=== PATIENT | male | born 1985 | race Caucasian/White ===

== ENCOUNTER 2021-03-05 08:30 | Day surgery (SDC) | payer BC ==
[~2021-03-05 08:30] MED LIST: Lactated Ringers 1,000 ML IV SCH; Lidocaine 2% 5 ML SDV ONE; Midazolam 1 MG/ML 2 ML SDV ONE; Propofol 200 MG/20 ML SDV ONE; Sodium Chloride 0.9% 10 ML SDV IV PRN; Sodium Chloride 0.9% 10 ML Syringe FLUSH PRN; Sodium Chloride 0.9% 2.5 ML Syringe FLUSH PRN; fentaNYL 100 MCG/2 ML SDV ONE
--- NOTE | 2021-03-05 09:28 | PCM.PREANE ---
Preanesthetic Assessment - Anesthesia/Transfusion/Family Hx Anesthesia History: Prior Anesthesia Without Reaction Family History of Anesthesia Reaction: No Transfusion History: No Prior Transfusion(s) - Review of Systems General: No Symptoms Pulmonary: No Symptoms Cardiovascular: No Symptoms Gastrointestinal: No Symptoms Neurological: No Symptoms Other: Reports: None - Physical Assessment NPO Status Date: 03/05/21 NPO Status Time: 00:01 Vital Signs: Last Vital Signs Temp 97.2 F 03/05/21 08:44 Pulse 92 03/05/21 08:44 Resp 15 03/05/21 08:44 BP 149/95 H 03/05/21 08:44 Pulse Ox 99 03/05/21 08:44 Height: 5 ft 6 in Weight: 173 lb ASA Class: 2 Mental Status: Alert & Oriented x3 Airway Class: Mallampati = 2 Dentition: Reports: Normal Dentition ROM/Head Extension: Full Lungs: Clear to Auscultation, Normal Respiratory Effort Cardiovascular: Regular Rate, Regular Rhythm - Allergies Allergies/Adverse Reactions: Allergies Allergy/AdvReac Type Severity Reaction Status Date / Time bacitracin Allergy Rash Verified 02/28/21 10:38 neomycin Allergy Rash Verified 02/28/21 10:38 [From Neosporin ([id number])] polymyxin B Allergy Rash Verified 02/28/21 10:38 [From Neosporin ([id number])] - Acknowledgements Anesthesia Type Planned: General Anesthesia Pt an Appropriate Candidate for the Planned Anesthesia: Yes Alternatives and Risks of Anesthesia Discussed w Pt/Guardian: Yes Pt/Guardian Understands and Agrees with Anesthesia Plan: Yes Additional Comments: npo alexandre tob quit chew tob 2019 etoh rare covid pos jan 09, 2021 lost taste and smell resolved no pul problems par no questions PreAnesthesia Questionnaire HEENT History: Reports: None Cardiovascular History: Reports: None Respiratory History: Reports: None Gastrointestinal History: Reports: GERD, Hiatal Hernia Genitourinary History: Reports: None Musculoskeletal History: Reports: None Neurological History: Reports: Concussion Psychiatric History: Reports: None Endocrine/Metabolic History: Reports: None Hematologic History: Reports: None Immunologic History: Reports: None Oncologic (Cancer) History: Reports: None Dermatologic History: Reports: Eczema - Past Surgical History Head Surgeries/Procedures: Reports: None HEENT Surgical History: Reports: LASIK, Oral Surgery Cardiovascular Surgical History: Reports: None Respiratory Surgical History: Reports: None GI Surgical History: Reports: None Male Surgical History: Reports: None Endocrine Surgical History: Reports: None Neurological Surgical History: Reports: None Musculoskeletal Surgical History: Reports: None Oncologic Surgical History: Reports: None Dermatological Surgical History: Reports: None - SUBSTANCE USE Tobacco Use Within Last Twelve Months: No - HOME MEDS Home Medications: Home Meds Omeprazole 40 mg PO DAILY 02/28/21 [History] - CURRENT (IN HOUSE) MEDS Current Meds: Current Medications Lactated Ringer's (Ringers, Lactated) 1,000 mls @ 125 mls/hr IV ASDIRECTED WILFREDO Last Admin: 03/05/21 09:00 Dose: 125 mls/hr Documented by: Sodium Chloride (Sodium Chloride 0.9% 10 Ml Syringe) 10 ml FLUSH ASDIRECTED PRN PRN Reason: Keep Vein Open Sodium Chloride (Sodium Chloride 0.9% 2.5 Ml Syringe) 2.5 ml FLUSH ASDIRECTED PRN PRN Reason: Keep Vein Open Sodium Chloride (Sodium Chloride 0.9% 10 Ml Syringe) 10 ml FLUSH ASDIRECTED PRN PRN Reason: Keep Vein Open Sodium Chloride (Sodium Chloride 0.9% 2.5 Ml Syringe) 2.5 ml FLUSH ASDIRECTED PRN PRN Reason: Keep Vein Open Sodium Chloride (Sodium Chloride 0.9% 10 Ml Sdv) 10 ml IV ASDIRECTED PRN PRN Reason: IV Use Discontinued Medications Fentanyl (Fentanyl 100 Mcg/2 Ml Sdv) Confirm Administered Dose 100 mcg .ROUTE .STK-MED ONE Stop: 03/05/21 08:01 Lidocaine (Lidocaine 2% 5 Ml Sdv) Confirm Administered Dose 5 ml .ROUTE .STK-MED ONE Stop: 03/05/21 08:00 Midazolam HCl (Midazolam 1 Mg/Ml 2 Ml Sdv) Confirm Administered Dose 2 mg .ROUTE .STK-MED ONE Stop: 03/05/21 08:01 Propofol (Propofol 200 Mg/20 Ml Sdv) Confirm Administered Dose 200 mg .ROUTE .STK-MED ONE Stop: 03/05/21 08:01
[2021-03-05] MEDS ORDERED: Propofol 200 MG/20 ML SDV ONE (10:06)
--- NOTE | 2021-03-05 10:36 | PCM.OPNOTE ---
- General Post-Op/Procedure Note Date of Surgery/Procedure: 03/05/21 Operative Procedure(s): Diagnostic EGD and colonoscopy Findings: Normal appearing colon. Biopsies of cecum, transverse colon, sigmoid and rectum. Small hiatal hernia. Mild distal esophagitis. Pre Op Diagnosis: Nausea, vomiting, change in bowel habits Post-Op Diagnosis: Hiatal hernia with gerd and esophagitis, normal colonoscopy Anesthesia Technique: MAC Primary Surgeon: Kayla Galvan Condition: Good
--- NOTE | 2021-03-05 12:53 | PCM.POSTAN ---
POST ANESTHESIA ASSESSMENT - MENTAL STATUS Mental Status: Alert (no anesthetic problems), Oriented - VITAL SIGNS Vital Signs: Last Vital Signs Temp 96.8 F L 03/05/21 10:59 Pulse 68 03/05/21 10:59 Resp 14 03/05/21 10:59 BP 114/80 03/05/21 10:59 Pulse Ox 99 03/05/21 10:59 - RESPIRATORY Respiratory Status: Respiratory Rate WNL, Airway Patent, O2 Saturation Stable - CARDIOVASCULAR CV Status: Pulse Rate WNL, Blood Pressure Stable - GASTROINTESTINAL GI Status: No Symptoms - POST OP HYDRATION Hydration Status: Adequate & Stable
--- NOTE | 2021-03-05 12:53 | PCM48HPAN ---
Post Anesthesia Note - EVALUATION WITHIN 48HRS OF ANESTHETIC Vital Signs in Normal Range: Yes Patient Participated in Evaluation: Yes Respiratory Function Stable: Yes Airway Patent: Yes Cardiovascular Function Stable: Yes Hydration Status Stable: Yes Pain Control Satisfactory: Yes Nausea and Vomiting Control Satisfactory: Yes Mental Status Recovered: Yes Vital Signs: Last Vital Signs Temp 96.8 F L 03/05/21 10:59 Pulse 68 03/05/21 10:59 Resp 14 03/05/21 10:59 BP 114/80 03/05/21 10:59 Pulse Ox 99 03/05/21 10:59
--- NOTE | 2021-03-05 15:37 | OR ---
SURGEON: KAYLA GALVAN MD DATE OF PROCEDURE: 03/05/2021 PREOPERATIVE DIAGNOSIS: Nausea and vomiting, change in bowel habits. POSTOPERATIVE DIAGNOSES: 1. Hiatal hernia with esophagitis. 2. Change in bowel habits. PROCEDURES PERFORMED: Diagnostic esophagogastroduodenoscopy and colonoscopy with biopsies. PRIMARY SURGEON: Kayla Galvan MD ANESTHESIA: MAC. INSTRUMENTS USED: Olympus endoscope and colonoscope. EXTENT OF EXAM: To the second portion of duodenum, to the cecum. PREPARATION: Good. LIMITATIONS: None. INDICATIONS FOR EXAMINATION: The patient is a 35-year-old male who presents with nausea, vomiting, as well as a change in his bowel habits. He had a HIDA scan performed which showed questionable biliary dyskinesia. The decision was made to proceed with an EGD and colonoscopy prior to discussing a cholecystectomy. We discussed the procedures, expected perioperative course, and the risks. He verbalized understanding and wishes to proceed. PROCEDURE IN DETAIL: The patient was brought in to the endoscopy suite and placed in the left lateral decubitus position. A time-out was completed verifying the patient's name, age, date of , allergies, and procedure to be performed. A bite block was placed in the patient's mouth and continuous oxygen was provided via nasal cannula throughout the procedure. Monitored anesthesia care was induced. After adequate sedation was achieved, a well-lubricated endoscope was placed in the patient's mouth and advanced under direct visualization to the second portion of duodenum. This appeared normal and a photograph was taken. The scope was then fully withdrawn while examining the color, texture, anatomy, and integrity mucosa of the upper GI tract. The duodenal bulb appeared normal. Biopsies were taken of this and sent to Pathology, labeled as duodenum. The scope was brought into the stomach and a photograph was taken of the pylorus and GE junction. The patient appeared to have a very small hiatal hernia. Biopsies were taken of the gastric antrum, body, and fundus and sent for histologic review and H pylori testing. There was no evidence of gross ulceration or inflammation of the gastric mucosa. The scope was brought into the distal esophagus and a photograph was taken of the Z-line. The Z-line appeared mildly irregular and there appeared to be some very mild distal esophagitis. A photograph was taken of the Z-line as well as the very small hiatal hernia. A biopsy was taken 1 cm above the Z-line and sent to Pathology, labeled as esophagus. The remainder of the esophagus appeared normal. The scope was removed and this portion of the procedure terminated. A digital rectal exam was performed. This exam was within normal limits. A well-lubricated colonoscope was inserted into the rectum and advanced under direct visualization to the level of the cecum. The cecum was identified by both visual and anatomic landmarks. A photograph was taken of the cecal cap as well as with the scope retroflexed within the cecum. The scope was then straightened out and fully withdrawn while examining the color, texture, anatomy, and integrity of mucosa from the cecum to the anal canal. The colonic mucosa all appeared normal. Random biopsies were taken of the cecum, transverse colon, sigmoid colon, and rectum and sent to Pathology for histologic review. The scope was retroflexed in the rectum to allow visualization of the anal canal opening. This appeared normal and a photograph was taken. The scope was straightened out and fully withdrawn. The cecum to anus time was 8 minutes. The patient tolerated the procedure well and was transferred to the PACU in stable condition. ENDOSCOPIC DIAGNOSES: 1. Hiatal hernia with esophagitis. 2. Change in bowel habits. RECOMMENDATIONS: Follow up in clinic in two weeks. MANDIE DELA CRUZ /[id number]
== END 2021-03-05 11:30 | disposition home or self-care (01) ==
LOC: MW.SDS 08:30
PROVIDERS: ATTEND Surgery
DX: R19.4 Change in bowel habit (principal); K44.9 Diaphragmatic hernia without obstruction or gangrene; Z86.16 Personal history of COVID-19; E78.5 Hyperlipidemia, unspecified; K21.00 Gastro-esophageal reflux disease with esophagitis, without bleeding; K82.8 Other specified diseases of gallbladder; Z88.1 Allergy status to other antibiotic agents; Z87.891 Personal history of nicotine dependence
CPT/HCPCS: 43239; 45380; J2250; J2704; J3010; J7120; 88305; 88312

== ENCOUNTER 2021-03-14 08:22 | Day surgery (SDC) | payer BC ==
[~2021-03-14 08:22] MED LIST changes: +Bupivacaine 0.5% 30 ML SDV ONE; +Glycopyrrolate 0.2 MG/ML SDV ONE; +Ketorolac 30 MG/ML SDV ONE; +Octyl 2-Cyanoacrylate 1 Tube ONE; +Ondansetron 4 MG/2 ML SDV ONE; +Rocuronium Bromide 50 MG/5 ML Syringe ONE; +Sodium Chloride 0.9% 20 ML ONE; +Sugammadex Sodium 200 MG/2 ML VIAL ONE; +ceFAZolin 1 GM Vial ONE; +ceFAZolin 2 GM in Premix Bag 1 BAG IV ONE; -fentaNYL 100 MCG/2 ML SDV ONE; +fentaNYL 250 MCG/5 ML SDV ONE
--- NOTE | 2021-03-14 09:09 | PCM.PREANE ---
Preanesthetic Assessment - Anesthesia/Transfusion/Family Hx Anesthesia History: Prior Anesthesia Without Reaction Family History of Anesthesia Reaction: No Transfusion History: No Prior Transfusion(s) - Review of Systems General: No Symptoms Pulmonary: No Symptoms Cardiovascular: No Symptoms Gastrointestinal: No Symptoms Neurological: No Symptoms Other: Reports: None - Physical Assessment NPO Status Date: 03/14/21 NPO Status Time: 00:01 Vital Signs: Last Vital Signs Temp 97.3 F 03/14/21 08:33 Pulse 67 03/14/21 08:33 Resp 15 03/14/21 08:33 BP 132/87 03/14/21 08:33 Pulse Ox 99 03/14/21 08:33 Height: 5 ft 6 in Weight: 173 lb ASA Class: 2 Mental Status: Alert & Oriented x3 Airway Class: Mallampati = 2 Dentition: Reports: Normal Dentition ROM/Head Extension: Full Lungs: Clear to Auscultation, Normal Respiratory Effort Cardiovascular: Regular Rate, Regular Rhythm - Allergies Allergies/Adverse Reactions: Allergies Allergy/AdvReac Type Severity Reaction Status Date / Time bacitracin Allergy Rash Verified 03/08/21 07:32 neomycin Allergy Rash Verified 03/08/21 07:32 [From Neosporin ([id number])] polymyxin B Allergy Rash Verified 03/08/21 07:32 [From Neosporin ([id number])] - Anesthesia Plan Pre-Op Medication Ordered: None - Acknowledgements Anesthesia Type Planned: General Anesthesia Pt an Appropriate Candidate for the Planned Anesthesia: Yes Alternatives and Risks of Anesthesia Discussed w Pt/Guardian: Yes Pt/Guardian Understands and Agrees with Anesthesia Plan: Yes Additional Comments: npo after [place] tob none etoh rare no cv problems par no questions PreAnesthesia Questionnaire HEENT History: Reports: None Cardiovascular History: Reports: None Respiratory History: Reports: None Gastrointestinal History: Reports: GERD, Hiatal Hernia Genitourinary History: Reports: None Musculoskeletal History: Reports: None Neurological History: Reports: Concussion Psychiatric History: Reports: None Endocrine/Metabolic History: Reports: None Hematologic History: Reports: None Immunologic History: Reports: None Oncologic (Cancer) History: Reports: None Dermatologic History: Reports: Eczema - Past Surgical History Head Surgeries/Procedures: Reports: None HEENT Surgical History: Reports: LASIK, Oral Surgery Cardiovascular Surgical History: Reports: None Respiratory Surgical History: Reports: None GI Surgical History: Reports: Colonoscopy, EGD Male Surgical History: Reports: None Endocrine Surgical History: Reports: None Neurological Surgical History: Reports: None Musculoskeletal Surgical History: Reports: None Oncologic Surgical History: Reports: None - SUBSTANCE USE Tobacco Use Within Last Twelve Months: Other (See Below) - HOME MEDS Home Medications: Home Meds Omeprazole 40 mg PO DAILY 02/28/21 [History] - CURRENT (IN HOUSE) MEDS Current Meds: Current Medications Lactated Ringer's (Ringers, Lactated) 1,000 mls @ 125 mls/hr IV ASDIRECTED WILFREDO Sodium Chloride (Sodium Chloride 0.9% 2.5 Ml Syringe) 2.5 ml FLUSH ASDIRECTED PRN PRN Reason: Keep Vein Open Sodium Chloride (Sodium Chloride 0.9% 10 Ml Sdv) 10 ml IV ASDIRECTED PRN PRN Reason: IV Use Sodium Chloride (Sodium Chloride 0.9% 10 Ml Syringe) 10 ml FLUSH ASDIRECTED PRN PRN Reason: Keep Vein Open Discontinued Medications Bupivacaine HCl (Bupivacaine 0.5% 30 Ml Sdv) Confirm Administered Dose 30 ml .ROUTE .STK-MED ONE Stop: 03/14/21 08:01 Cefazolin Sodium (Cefazolin 1 Gm Vial) Confirm Administered Dose 2 gm .ROUTE .STK-MED ONE Stop: 03/14/21 07:17 Fentanyl (Fentanyl 250 Mcg/5 Ml Sdv) Confirm Administered Dose 250 mcg .ROUTE .STK-MED ONE Stop: 03/14/21 07:10 Glycopyrrolate (Glycopyrrolate 0.2 Mg/Ml Sdv) Confirm Administered Dose 0.2 mg .ROUTE .STK-MED ONE Stop: 03/14/21 07:10 Cefazolin Sodium/Dextrose 2 gm (/ Premix) 50 mls @ 100 mls/hr IV ONETIME ONE Stop: 03/11/21 11:28 Sodium Chloride (Normal Saline) Confirm Administered Dose 20 mls @ as directed .ROUTE .STK-MED ONE Stop: 03/14/21 07:17 Ketorolac Tromethamine (Ketorolac 30 Mg/Ml Sdv) Confirm Administered Dose 30 mg .ROUTE .STK-MED ONE Stop: 03/14/21 07:10 Lidocaine (Lidocaine 2% 5 Ml Sdv) Confirm Administered Dose 5 ml .ROUTE .STK-MED ONE Stop: 03/14/21 07:10 Midazolam HCl (Midazolam 1 Mg/Ml 2 Ml Sdv) [facility]: 03/14/21 07:09 Octyl Cyanoacrylate (Octyl 2-Cyanoacrylate 1 Tube) Confirm Administered Dose 1 applic [facility] Stop: 03/14/21 08:01 Ondansetron HCl (Ondansetron 4 Mg/2 Ml Sdv) Confirm Administered Dose 4 mg .ROUTE .[facility] ONE Stop: 03/14/21 07:10 Propofol (Propofol 200 Mg/20 Ml Sdv) Confirm Administered Dose 200 [facility] Stop: 03/14/21 07:09 Rocuronium Patterson (Rocuronium Patterson 50 Mg/5 Ml Syringe) Confirm Administered Dose 50 mg .ROUTE .[facility] ONE Stop: 03/14/21 07:10 Sugammadex Sodium (Sugammadex Sodium 200 Mg/2 Ml Vial) Confirm Administered Dose 200 mg .ROUTE .[facility] ONE Stop: 03/14/21 07:10
[2021-03-14] MEDS ORDERED: fentaNYL 100 MCG/2 ML SDV IVPUSH PRN (10:47)
[2021-03-14] MEDS ORDERED: Acetaminophen 1,000 MG in Premix Bag 1 BAG IV PRN (10:47)
[2021-03-14] MEDS ORDERED: Acetaminophen/oxyCODONE 325-5 MG Tab PO PRN (11:22)
--- NOTE | 2021-03-14 11:23 | PCM.OPNOTE ---
- General Post-Op/Procedure Note Date of Surgery/Procedure: 03/14/21 Operative Procedure(s): Laparoscopic cholecystectomy Findings: Normal appearing gallbladder Pre Op Diagnosis: Biliary dyskinesia Post-Op Diagnosis: same Anesthesia Technique: MAC Primary Surgeon: Kayla Galvan Condition: Good
--- NOTE | 2021-03-14 12:28 | PCM.POSTAN ---
POST ANESTHESIA ASSESSMENT - MENTAL STATUS Mental Status: Alert (no anesthetic problems), Oriented - VITAL SIGNS Vital Signs: Last Vital Signs Temp 97.5 F 03/14/21 11:32 Pulse 62 03/14/21 12:18 Resp 14 03/14/21 12:18 BP 113/76 03/14/21 12:18 Pulse Ox 95 03/14/21 12:18 - RESPIRATORY Respiratory Status: Respiratory Rate WNL, Airway Patent, O2 Saturation Stable - CARDIOVASCULAR CV Status: Pulse Rate WNL, Blood Pressure Stable - GASTROINTESTINAL GI Status: No Symptoms - POST OP HYDRATION Hydration Status: Adequate & Stable
--- NOTE | 2021-03-14 14:22 | PCM48HPAN ---
Post Anesthesia Note - EVALUATION WITHIN 48HRS OF ANESTHETIC Vital Signs in Normal Range: Yes Patient Participated in Evaluation: Yes Respiratory Function Stable: Yes Airway Patent: Yes Cardiovascular Function Stable: Yes Hydration Status Stable: Yes Pain Control Satisfactory: Yes Nausea and Vomiting Control Satisfactory: Yes Mental Status Recovered: Yes Vital Signs: Last Vital Signs Temp 97.2 F 03/14/21 12:25 Pulse 62 03/14/21 14:10 Resp 15 03/14/21 14:10 BP 119/73 03/14/21 14:10 Pulse Ox 99 03/14/21 13:40
--- NOTE | 2021-03-15 16:58 | OR ---
SURGEON: KAYLA FLORES MD DATE OF PROCEDURE: 03/14/2021 PREOPERATIVE DIAGNOSIS: Biliary dyskinesia. POSTOPERATIVE DIAGNOSIS: Biliary dyskinesia. PROCEDURE PERFORMED: Laparoscopic cholecystectomy. PRIMARY SURGEON: Kayla Flores MD ANESTHESIA: General endotracheal anesthesia. FLUIDS: 900 mL crystalloid. ESTIMATED BLOOD LOSS: 5 mL. URINE OUTPUT: 350 mL. FINDINGS: Normal-appearing gallbladder. COMPLICATIONS: None. INDICATIONS: The patient is a 35-year-old male who presented to my clinic with complaints of right upper quadrant postprandial abdominal pain. I performed a diagnostic EGD and colonoscopy. He was found to have a small hiatal hernia with some mild reflux esophagitis. Despite being on a PPI, symptoms have not resolved. He had a HIDA scan which showed an ejection fraction on the low end of normal at 42%. After discussion regarding these findings, the patient and I both agreed that his symptoms are likely due to biliary dyskinesia and that he wishes to undergo a laparoscopic possible open cholecystectomy. I explained the procedure, expected perioperative course, and the risks. The patient verbalized understanding and wishes to proceed. PROCEDURE IN DETAIL: The patient was brought into the OR and placed on the OR table in supine position. A time-out was completed verifying the patient's name, age, date of , allergies, and procedure to be performed. General endotracheal anesthesia was induced. The left arm was tucked to the patient's side and a Narayanan catheter placed. The abdomen was prepped and draped in usual standard fashion. I anesthetized the infraumbilical fold with 0.5% Marcaine plain. An 11 blade was used to make an incision along the infraumbilical fold. Cautery was used to dissect to the level of the subcutaneous fat. I bluntly dissected down to the fascia. The fascia was elevated with Kochers and incised sharply with a curved Pina scissors. The peritoneum was identified. This was elevated with hemostats and incised sharply with a curved Pina scissors as well. Entry into the abdomen was palpated digitally. A 12- mm Rosalba trocar was placed into the abdomen and it was insufflated with carbon dioxide. A 5 mm, 30-degree scope was inserted. I inspected the area underneath my initial trocar placement. No damage to surrounding structures was noted. The patient was placed into reverse Trendelenburg position and airplaned slightly to the left. 5 mm trocars were placed under direct visualization in the following locations, one in the epigastric area, one in the right flank, and one 2 fingerbreadths below the left subcostal margin in the midclavicular line. The dome of the gallbladder was grasped and elevated. I identified the infundibulum. This was grasped. Using a combination of blunt dissection and hook cautery, I took down the attachments around the proximal one-third of the gallbladder. I cleared away all of the attachments around the cystic duct and artery. I then cleared away one-third of the proximal cystic plate. Once my critical view was achieved, I doubly clipped and ligated my cystic duct and artery. The remainder of the attachments of the gallbladder to the cystic plate were taken down using hook cautery. The gallbladder was then placed in an Endo Catch bag and removed through the infraumbilical port site. I closely inspected my operative field. It appeared to be hemostatic with no evidence of biliary drainage. A photograph was taken. I irrigated the right upper quadrant with a small amount of normal saline which was suctioned out. I then removed the 5 mm trocars under direct visualization and allowed the abdomen to desufflate. The 12 mm Rosalba trocar was removed as well. The fascia at the infraumbilical port site was closed with interrupted 0 Vicryl sutures. The subcutaneous fat was closed with interrupted 3-0 Vicryl sutures. The skin was closed with a running 4-0 Monocryl stitch. The 5 mm trocar sites were closed with interrupted 4-0 Monocryl sutures. Dermabond and sterile dressings were applied. All counts were complete and correct at the end of the case. The patient was extubated and taken to the PACU in stable condition. MANDIE DELA CRUZ /[id number]
== END 2021-03-14 14:40 | disposition home or self-care (01) ==
LOC: MW.SDS 08:22
PROVIDERS: ATTEND Surgery
DX: K81.1 Chronic cholecystitis (principal); K82.8 Other specified diseases of gallbladder; K21.9 Gastro-esophageal reflux disease without esophagitis; E78.5 Hyperlipidemia, unspecified; K44.9 Diaphragmatic hernia without obstruction or gangrene; Z86.16 Personal history of COVID-19; Z88.1 Allergy status to other antibiotic agents; Z79.899 Other long term (current) drug therapy; Z87.891 Personal history of nicotine dependence
CPT/HCPCS: 47562; 88304; A9270; J0131; J0690; J1885; J2250; J2405; J2704; J3010; J3490; J7120; 00790

== ENCOUNTER 2022-08-13 19:09 | Emergency (ER) | payer BC ==
[2022-08-13] MEDS ORDERED: Sodium Chloride 0.9% 2.5 ML Syringe FLUSH PRN (19:42)
[2022-08-13] MEDS ORDERED: Sodium Chloride 0.9% 1,000 ML IV ONE (19:42)
[2022-08-13] MEDS ORDERED: Sodium Chloride 0.9% 10 ML Syringe FLUSH PRN (19:42)
[2022-08-13 20:18] LABS: BLOOD UREA NITROGEN,BUN 17 mg/dL (7.0-18.0); CARBON DIOXIDE,CO2 29.5 mmol/L (21.0-32.0); CHLORIDE,CL 102 mmol/L (98-107); ESTIMATED GFR 100 mL/min (>60); GLUCOSE RANDOM 83 mg/dL (74-106); POTASSIUM,K 4.3 mmol/L (3.5-5.1); SODIUM,NA 141 mmol/L (136-148)
== END 2022-08-13 23:43 | disposition home or self-care (01) ==
LOC: MW.ED 19:09
DX: R00.2 Palpitations (principal); R00.0 Tachycardia, unspecified; K21.9 Gastro-esophageal reflux disease without esophagitis; Z88.8 Allergy status to other drugs, medicaments and biological substances
CPT/HCPCS: 36415; 71045; 80053; 80305; 81003; 83880; 84443; 84484; 85025; 85379; 93005; 96360; 99285; J3490; J7030; 93010; 99284

== ENCOUNTER 2022-10-22 06:12 | Emergency (ER) | payer BC ==
[2022-10-22] MEDS ORDERED: Octyl 2-Cyanoacrylate 1 g/1 mL 1 APPLIC PEN TOP ONE (06:22)
[2022-10-22] MEDS ORDERED: Morphine 4 MG/ML Syringe IVPUSH STA (06:33)
[2022-10-22] MEDS ORDERED: Ondansetron 4 MG/2 ML SDV ONE (06:51)
[2022-10-22] MEDS ORDERED: Ondansetron 4 MG/2 ML SDV IVPUSH ONE (06:52)
[2022-10-22 07:07] LABS: CARBON DIOXIDE,CO2 26.2 mmol/L (21.0-32.0); POTASSIUM,K 4.2 mmol/L (3.5-5.1)
[2022-10-22] MEDS ORDERED: Iopamidol 755 MG/ML 200 ML Multipack Bottle IVPUSH ONE (07:28)
[2022-10-22] MEDS ORDERED: Iopamidol 755 MG/ML 500 ML Multipack Bottle IVPUSH STA (07:33)
== END 2022-10-22 08:33 | disposition home or self-care (01) ==
LOC: MW.ED 06:12
DX: R10.32 Left lower quadrant pain (principal); R19.7 Diarrhea, unspecified; K21.9 Gastro-esophageal reflux disease without esophagitis; Z88.1 Allergy status to other antibiotic agents; Z88.8 Allergy status to other drugs, medicaments and biological substances; Z86.16 Personal history of COVID-19; Z79.899 Other long term (current) drug therapy
CPT/HCPCS: 36415; 74177; 80053; 83690; 85025; 96374; 96375; 99284; J2270; J2405; Q9967

== ENCOUNTER 2022-11-30 03:40 | Emergency (ER) | payer BC | END 2022-11-30 04:58 | disposition home or self-care (01) | LOC: MW.ED 03:40 | DX: R61 Generalized hyperhidrosis (principal); Z88.1 Allergy status to other antibiotic agents; Z98.890 Other specified postprocedural states | CPT/HCPCS: 99283 ==

== ENCOUNTER 2023-04-13 00:45 | Emergency (ER) | payer BC ==
[2023-04-13] MEDS ORDERED: Lactated Ringers 1,000 ML IV ONE (01:08)
[2023-04-13 01:11] LABS: BASE EXCESS VENOUS -4.2 (-2.0-3.0); BASOPHILS PERCENT AUTO 0.3 % (0.0-1.5); EOSINOPHILS ABSOLUTE AUTO 0.3 K/uL (0.0-0.7); EOSINOPHILS PERCENT AUTO 2.7 % (0.0-7.0); HEMATOCRIT 46.8 % (38.0-50.0); HEMOGLOBIN 16.3 g/dL (13.0-17.0); LYMPHOCYTES ABSOLUTE AUTO 3.9 K/uL (0.6-2.4); LYMPHOCYTES PERCENT AUTO 37.3 % (16.0-40.0); MEAN CORPUSCULAR HEMOGLOBIN 31.5 pg (27.0-32.0); MEAN CORPUSCULAR HGB CONC 34.8 g/dL (31.0-37.0); MEAN CORPUSCULAR VOLUME 90.5 fL (80.0-98.0); MONOCYTES ABSOLUTE AUTO 0.8 K/uL (0.0-0.8); NEUTROPHILS ABSOLUTE AUTO 5.5 K/uL (1.4-5.7); NEUTROPHILS PERCENT AUTO 51.7 % (48.0-80.0); NRBC ABSOLUTE 0 K/uL; PH,VENOUS 7.33 (7.31-7.41); PLATELET COUNT,PLT 322 K/uL (150-400); RED BLOOD CELL COUNT 5.17 M/uL (4.50-5.90); WHITE BLOOD CELL COUNT,WBC 10.53 K/uL (4.0-11.0)
[2023-04-13 01:22] LABS: ALBUMIN 3.7 g/dL (3.4-5.0); BILIRUBIN TOTAL 0.4 mg/dL (0.2-1.0); CALCIUM 8.3 mg/dL (8.5-10.1); CARBON DIOXIDE,CO2 21.6 mmol/L (21.0-32.0); CREATININE 1.2 mg/dL (0.8-1.3); EST CRCL DRUG DOSING (CG) 81.54 mL/min; MAGNESIUM 2.2 mg/dL (1.8-2.4); POTASSIUM,K 3.9 mmol/L (3.5-5.1); PROTEIN TOTAL,TP 7.5 g/dL (6.4-8.2)
[2023-04-13 01:25] LABS: LACTIC ACID 6.7 mmol/L (0.4-2.0)
[2023-04-13] MEDS ORDERED: Ibuprofen 400 MG Tab PO ONE (01:59)
[2023-04-13] MEDS ORDERED: Acetaminophen 325 MG Tab PO ONE (01:59)
== END 2023-04-13 04:20 | disposition home or self-care (01) ==
LOC: MW.ED 00:45
DX: R56.9 Unspecified convulsions (principal); Z88.1 Allergy status to other antibiotic agents; Z86.16 Personal history of COVID-19
CPT/HCPCS: 36415; 70450; 72125; 80053; 82803; 83605; 83690; 83735; 85025; 93005; 96360; 99285; A9270; J7120; 93010; 99283

== ENCOUNTER 2024-02-10 19:52 | Emergency (ER) | payer BC ==
[2024-02-10] MEDS: Sodium Chloride 0.9% 2.5 ML Syringe FLUSH PRN (20:38)
[2024-02-10] MEDS: Sodium Chloride 0.9% 1,000 ML IV ONE (20:38)
[2024-02-10] MEDS: Sodium Chloride 0.9% 10 ML Syringe FLUSH PRN (20:38)
[2024-02-10] MEDS: Ketorolac 30 MG/ML SDV IVPUSH ONE (20:39)
[2024-02-10] MEDS: Ondansetron 4 MG/2 ML SDV IVPUSH ONE (20:39)
[2024-02-10] MEDS: Lidocaine 4% 1 each Patch TOP ONE (20:39)
[2024-02-10 20:55] LABS: BASOPHILS ABSOLUTE AUTO 0.04 K/uL (0.00-0.20); BASOPHILS PERCENT AUTO 0.5 % (0.0-1.0); EOSINOPHILS ABSOLUTE AUTO 0.12 K/uL (0.00-0.45); EOSINOPHILS PERCENT AUTO 1.5 % (0.0-6.0); HEMATOCRIT 46.2 % (42.0-52.0); HEMOGLOBIN 16.4 g/dL (14.0-18.0); IMMATURE GRAN ABSOLUTE AUTO 0.03 K/uL (0.00-0.05); IMMATURE GRAN PERCENT AUTO 0.4 % (0.0-0.4); LYMPHOCYTES ABSOLUTE AUTO 2.56 K/uL (1.00-4.80); LYMPHOCYTES PERCENT AUTO 32.6 % (24.0-44.0); MEAN CORPUSCULAR HEMOGLOBIN 31.2 pg (28.0-32.0); MEAN CORPUSCULAR HGB CONC 35.5 g/dL (32.0-36.0); MEAN CORPUSCULAR VOLUME 87.8 fL (83.0-99.0); MEAN PLATELET VOLUME 9.4 fL (9.4-12.4); MONOCYTES ABSOLUTE AUTO 0.78 K/uL (0.00-0.80); MONOCYTES PERCENT AUTO 9.9 % (0.0-8.0); NEUTROPHILS ABSOLUTE AUTO 4.32 K/uL (1.80-7.70); NEUTROPHILS PERCENT AUTO 55.1 % (41.0-71.0); PLATELET COUNT,PLT 304 K/uL (150-400); RED BLOOD CELL COUNT 5.26 M/uL (4.52-5.90); WHITE BLOOD CELL COUNT,WBC 7.85 K/uL (3.9-11.3)
[2024-02-10 21:15] LABS: APPEARANCE,URINE CLEAR; BILIRUBIN,URINE NEGATIVE (NEGATIVE); COLOR,URINE YELLOW; GLUCOSE,URINE NEGATIVE (NEGATIVE); KETONES,URINE NEGATIVE (NEGATIVE); LEUKOCYTE ESTERASE,URINE NEGATIVE (NEGATIVE); NITRITE,URINE NEGATIVE (NEGATIVE); OCCULT BLOOD,URINE NEGATIVE (NEGATIVE); PROTEIN,URINE NEGATIVE (NEGATIVE); UROBILINOGEN,URINE 0.2 EU/dL (<2.0)
[2024-02-10 21:22] LABS: ALBUMIN 3.9 g/dL (3.4-5.0); BILIRUBIN TOTAL 0.7 mg/dL (0.2-1.0); CALCIUM 9.3 mg/dL (8.5-10.1); CARBON DIOXIDE,CO2 27.9 mmol/L (21.0-32.0); CREATININE 1.2 mg/dL (0.8-1.3); EST CRCL DRUG DOSING (CG) 75.32 mL/min; POTASSIUM,K 3.8 mmol/L (3.5-5.1); PROTEIN TOTAL,TP 7.7 g/dL (6.4-8.2)
[2024-02-10] MEDS: Iopamidol 755 MG/ML 500 ML Multipack Bottle IVPUSH STA (21:41)
[2024-02-10] MEDS: Diazepam 5 MG Tab PO ONE (22:51)
== END 2024-02-10 22:57 | disposition home or self-care (01) ==
LOC: MW.ED 19:52
DX: M62.830 Muscle spasm of back (principal); Z88.1 Allergy status to other antibiotic agents; Z88.8 Allergy status to other drugs, medicaments and biological substances; Z86.19 Personal history of other infectious and parasitic diseases
CPT/HCPCS: 36415; 74177; 80053; 81003; 83690; 85025; 96374; 96375; 99284; A9270; J1885; J2405; J3490; J7030; Q9967; 99283

== ENCOUNTER 2025-01-01 07:09 | Emergency (ER) | payer BC, OTHER | END 2025-01-01 08:59 | disposition home or self-care (01) | LOC: MW.ED 07:09 | DX: S44.01XA Injury of ulnar nerve at upper arm level, right arm, initial encounter (principal); Z79.899 Other long term (current) drug therapy; Z88.1 Allergy status to other antibiotic agents; W10.9XXA Fall (on) (from) unspecified stairs and steps, initial encounter | CPT/HCPCS: 73080-26-RT; 73080-RT; 99283 ==